=== PATIENT | female | born 1985 | race Two or more races ===

== ENCOUNTER 2023-07-07 23:00 | Inpatient (IN) | payer OTHER ==
[~2023-07-07] VITALS: Ht 160 cm; Wt 101.2 kg
[2023-07-07] MEDS ORDERED: miSOPROStol 100 mcg TAB PR PRN (23:30)
[2023-07-07] MEDS ORDERED: BUTORPHANOL TARTRATE 2 MG/1 ML VIAL IV PRN ×2 (23:30)
[2023-07-07] MEDS ORDERED: LIDOCAINE 2%HCL (LOCAL ANESTH.) INJ 20ML MDV IJ PRN (23:30)
[2023-07-07] MEDS ORDERED: CARBOPROST TROMETHAMINE 250 MCG/1ML VIAL IM PRN (23:30)
[2023-07-07] MEDS ORDERED: ONDANSETRON HCL 4 MG/2 ML VIAL IV PRN (23:30)
[2023-07-07] MEDS ORDERED: miSOPROStol 100 mcg TAB SL PRN (23:30)
[2023-07-07 23:50] LABS: Urine Amorphous Crystal FEW /hpf (None Seen); Urine Bacteria MANY /hpf (None Seen); Urine Blood 1+ /uL (Negative); Urine Clarity HAZY (Clear); Urine Color Colorless (Yellow); Urine Mucus FEW (None Seen); Urine Protein, UAD Negative (Negative); Urine Specific Gravity 1.011 (1.001-1.035); Urine Urobilinogen Normal (Negative); Urine WBC 2 /hpf (0 - 5); Urine pH 7.5 (5.0-8.0)
[2023-07-07] MEDS: LACTATED RINGER'S 1,000 ML IV SCH (23:51)
[2023-07-07 23:59] LABS: Amphetamine Screen, Urine Neg (NEGATIVE); Barbiturate Scree,Urine Neg (NEGATIVE); Benzodiazephine Screen, Urine Neg (NEGATIVE); Cocaine Screen, Urine Neg (NEGATIVE); Opiate Scree,Urine Neg (NEGATIVE)
[2023-07-08] LABS: Cannabinoid Screen, Urine Neg (NEGATIVE); Phencyclidine Screen, Urine Neg (NEGATIVE)
[2023-07-08 00:02] LABS: Basophils # (auto) 0.2 10 ^3/uL (0-0.2); Basophils % (auto) 1.5 % (0.0-2.0); Eosinophils # (auto) 0 10 ^3/uL (0-0.8); Eosinophils % (auto) 0.4 % (0.0-7.0); Hematocrit 34.6 % (36.0-46.0); Hemoglobin 11.2 g/dL (12.2-16.2); Lymphocytes # (auto) 2.6 10 ^3/uL (0.4-5.4); Lymphocytes % (auto) 23.3 % (10.0-50.0); Mean Corpuscular Hemoglobin 28.4 pg (28.0-32.0); Mean Corpuscular Hgb Conc. 32.4 g/dL (32.0-36.0); Mean Corpuscular Volume 87.6 fL (80.0-100.0); Monocytes # (auto) 0.5 10 ^3/uL (0-1.3); Monocytes % (auto) 4.4 % (0.0-12.0); Neutrophils % (auto) 70.4 % (37.0-80.0); Red Blood Cells 3.95 10^6/uL (4.0-5.20); Red Cell Distribution Width 17.1 % (11.8-14.3); White Blood Cell 11.3 10^3/uL (4.4-10.8)
[2023-07-08 00:18] LABS: INR 0.97 (0.9-1.15); Partial Thromboplastin Time 26.9 SEC (24.5-34.5); Prothrombin Time 10.2 sec (9.3-11.8)
[2023-07-08 00:23] LABS: Fern Testing Positive
[2023-07-08 00:33] LABS: Alanine Aminotransferase 21 U/L (7-40); Albumin 3.6 g/dL (3.2-4.8); Alkaline Phosphatase 158 U/L (46-116); Anion Gap 9 (5-15); Aspartate Aminotransferase 26 U/L (13-40); BUN/Creatinine Ratio 17.9 (10.0-20.0); Bilirubin, Total 0.5 mg/dL (0.2-1.0); Blood Urea Nitrogen 10 mg/dL (9-23); Calcium 10.8 mg/dL (8.7-10.4); Carbon Dioxide 24 mmol/L (20-30); Chloride 106 mmol/L (98-107); Glucose 86 mg/dL (74-106); Potassium 3.7 mmol/L (3.5-5.1); Sodium 139 mmol/L (136-145); Total Protein 6.5 g/dL (5.7-8.2)
[2023-07-08] MEDS: WITCH HAZEL-GLYCERIN PAD TOP PRN (00:41)
[2023-07-08] MEDS: DERMOPLAST 60ML BOTTLE TOP PRN (01:12)
[2023-07-08] MEDS: PHISODERM TOP SOLN 240ML BTL TOP PRN (01:12)
[2023-07-08] MEDS: ROPIVACAINE HCL 200 ML ONE (01:15)
[2023-07-08] MEDS: LACTATED RINGER'S 1,000 ML IV ONE (01:45)
[2023-07-08] MEDS ORDERED: PREN-96 PO (02:36)
[2023-07-08] MEDS: LACT. RINGERS/OXYTOCIN 20UNITS 500 ML IV ONE ×2 (04:38→05:02)
[2023-07-08] MEDS: METHYLERGONOVINE MALEATE 0.2 MG/ML AMP IM ONE (04:38)
[2023-07-08] MEDS ORDERED: ONDANSETRON ODT 4 MG TAB PO PRN (06:00)
[2023-07-08 06:45] VITALS: BP 117/65; PULSE 86; RESP 18; TEMP 98.2
[2023-07-08] MEDS: LIDOCAINE HCL 2 %PF INJ 10ML AMP IJ ONE (09:00)
[2023-07-08] MEDS: IBUPROFEN 600 MG TAB PO PRN (09:18)
[2023-07-08] MEDS: ePHEDrine SULFATE 50 MG/ML AMP IV ONE (09:44)
[2023-07-08] MEDS: ROPIVACAINE HCL 400mg/200ml BAG (2mg/ml) EPI ONE (09:44)
[2023-07-08] MEDS: NALOXONE HCL 0.4 MG/ML VIAL IV ONE (09:44)
[2023-07-08] MEDS ORDERED: DIPHENOXYLATE W/ATROPINE 2.5 MG TAB PO SCH (10:00)
[2023-07-08 11:10] VITALS: BP 107/56; PULSE 71; RESP 18; TEMP 97.9
[2023-07-08 15:00] VITALS: BP 102/52; PULSE 80; RESP 18; TEMP 98
[2023-07-08] MEDS: ACETAMINOPHEN 325 MG TAB PO PRN (19:02)
[2023-07-08 19:25] VITALS: BP 115/55; PULSE 81; RESP 18; TEMP 98.7; O2SAT 99
[2023-07-08 23:30] VITALS: BP 116/53; PULSE 92; RESP 16; TEMP 97.9; O2SAT 96
[2023-07-09 03:20] VITALS: BP 98/52; PULSE 76; RESP 12; TEMP 98.1; O2SAT 96
[2023-07-09 07:11] VITALS: BP 123/70; PULSE 82; RESP 15; TEMP 97.4; O2SAT 99
[2023-07-09] MEDS ORDERED: IBU600T PO (07:23)
[2023-07-10 06:06] LABS: RPR Non Reactive (Non Reactive); Rubella Antibodies, IgG 2.01 index (Immune >0.99)
== END 2023-07-09 10:54 | disposition home or self-care (01) | DRG 805 ==
LOC: LDRP 23:00 → OBSVTOIN 23:21
PROVIDERS: ADMIT Obstetrics & Gynecology; ATTEND Obstetrics & Gynecology
PROC: 3E0R3BZ Introduction of Anesthetic Agent into Spinal Canal, Percutaneous Approach (ICD-10-PCS; principal; 2023-07-08)
PROC: 10E0XZZ Delivery of Products of Conception, External Approach (ICD-10-PCS; 2023-07-08)
PROC: 00HU33Z Insertion of Infusion Device into Spinal Canal, Percutaneous Approach (ICD-10-PCS; 2023-07-08)
DX: O42.913 Preterm premature rupture of membranes, unspecified as to length of time between rupture and onset of labor, third trimester (principal); O45.93 Premature separation of placenta, unspecified, third trimester; Z37.0 Single live birth; O99.214 Obesity complicating childbirth; E66.01 Morbid (severe) obesity due to excess calories; Z3A.36 36 weeks gestation of pregnancy
CPT/HCPCS: 36415; 59025; 59409; 62282; 76805; 76818; 80053; 80307; 81001; 84112; 85025; 85610; 85730; 86592; 86703; 86762; 86850; 86900; 86901; 87340; 94760; 96360; 96365; 96372; G0378; J2590